=== PATIENT | male | born 1945 | race Caucasian/White ===

== ENCOUNTER 2016-07-22 12:24 | Day surgery (SDCO) | payer OTHER ==
[~2016-07-22] VITALS: Ht 188 cm; Wt 131.6 kg
[2016-07-22 13:20] LABS: BASOPHIL 0.5 % (0-2); EOSINOPHIL 2.1 % (0-7); HCT 47.1 % (42.0-52.0); HGB 16.1 g/dl (13.2-18.0); LYMPHOCYTE 11.8 % (15-48); MCH 29.9 pg (25.0-31.0); MCHC 34.2 g/dL (32.0-36.0); MCV 87.5 fL (78.0-100.0); MONOCYTE 9.1 % (0-12); NEUTROPHIL 76.5 % (41-80); PLT 231 K/uL (150-400); RBC 5.38 M/uL (4.70-6.00); RDW 14.9 % (11.5-14.0); WBC 9.1 K/uL (4.0-10.5)
[2016-07-22 13:38] LABS: INR 1.06 (0.9-1.2); PROTHROMBIN TIME 13.4 SECONDS (11.7-14.0); PTT 31.5 SECONDS (23.2-31.4)
[2016-07-22 13:50] LABS: BILIRUBIN - TOTAL 1.2 mg/dL (0.1-1.0); GLOBULIN (CALCULATION) 2.4 g/dL (2.2-4.2); MAGNESIUM 1.89 mg/dL (1.40-2.10); POTASSIUM 4.1 mmol/L (3.5-5.1); TOTAL PROTEIN 6.4 g/dL (6.4-8.3)
[2016-07-22 13:53] LABS: CKMB 2.24 ng/mL (0.97-4.94); MYOGLOBIN 40 ng/mL (26-65); TROPONIN T < 0.010 ng/mL
[2016-07-22 13:58] LABS: PRO-BNP 1743 pg/mL (0-125)
[2016-07-22 20:25] LABS: CKMB 1.93 ng/mL (0.97-4.94); TROPONIN T < 0.010 ng/mL
[2016-07-22 20:35] LABS: FT4 (FREE T4) 1.49 ng/dL (0.93-1.70); TSH (THYROID STIM HORMONE) 4.06 uIU/mL (0.270-4.200)
[2016-07-23 02:12] LABS: HGB 16.7 g/dl (13.2-18.0); MCH 29.8 pg (25.0-31.0); MCHC 34.1 g/dL (32.0-36.0); MCV 87.3 fL (78.0-100.0); MPV 9.9 fL (6.0-9.5); RBC 5.61 M/uL (4.70-6.00); RDW 15.1 % (11.5-14.0); WBC 9.3 K/uL (4.0-10.5)
[2016-07-23 02:29] LABS: ALBUMIN 4.1 g/dL (3.4-4.8); BILIRUBIN - TOTAL 1.4 mg/dL (0.1-1.0); CREATININE 1.1 mg/dL (0.7-1.2); GLOBULIN (CALCULATION) 2.5 g/dL (2.2-4.2); MAGNESIUM 1.86 mg/dL (1.40-2.10); POTASSIUM 3.5 mmol/L (3.5-5.1); TOTAL PROTEIN 6.6 g/dL (6.4-8.3)
[2016-07-23 02:31] LABS: CKMB 1.65 ng/mL (0.97-4.94); TROPONIN T < 0.010 ng/mL
[2016-07-24 04:43] LABS: HCT 50.6 % (42.0-52.0); HGB 17.1 g/dl (13.2-18.0); MCH 29.8 pg (25.0-31.0); MCHC 33.8 g/dL (32.0-36.0); MCV 88.2 fL (78.0-100.0); MPV 10.3 fL (6.0-9.5); RBC 5.74 M/uL (4.70-6.00); RDW 15.3 % (11.5-14.0); WBC 7.8 K/uL (4.0-10.5)
[2016-07-24 05:01] LABS: CREATININE 1.3 mg/dL (0.7-1.2); MAGNESIUM 2.03 mg/dL (1.40-2.10); POTASSIUM 3.5 mmol/L (3.5-5.1); PRO-BNP 648 pg/mL (0-125); TROPONIN T < 0.010 ng/mL
--- NOTE | 2016-07-24 11:33 | NUR ---
REPORT GIVEN TO KATI GILLESPIE AT [facility]
--- NOTE | 2016-07-24 13:05 | NUR ---
1215: EMS ARRIVED TO TRANSPORT PT TO [facility]. [facility]ITAL ST[facility]EL AT THIS TIME.
== END 2016-07-24 12:15 | disposition other institution (70) ==
LOC: FER 12:24 → FTCU 16:29
PROVIDERS: Emergency Medicine; Internal Medicine Cardiovascular Disease; ADMIT Internal Medicine
DX: R07.89 Other chest pain (principal); I48.91 Unspecified atrial fibrillation; I25.10 Atherosclerotic heart disease of native coronary artery without angina pectoris; I50.9 Heart failure, unspecified; E78.5 Hyperlipidemia, unspecified; J44.9 Chronic obstructive pulmonary disease, unspecified; L03.90 Cellulitis, unspecified; Z95.1 Presence of aortocoronary bypass graft; Z87.891 Personal history of nicotine dependence; Z85.820 Personal history of malignant melanoma of skin; Z83.3 Family history of diabetes mellitus; Z82.49 Family history of ischemic heart disease and other diseases of the circulatory system; Z79.82 Long term (current) use of aspirin; Z79.899 Other long term (current) drug therapy; Z98.890 Other specified postprocedural states
CPT/HCPCS: 36415; 71010; 80048; 80053; 80061; 82550; 82553; 83735; 83874; 83880; 84100; 84439; 84443; 84484; 85025; 85610; 85730; 93005; 93970; 94640; G0378; J1940

== ENCOUNTER 2021-07-18 10:41 | Emergency (ER) | payer OTHER ==
[~2021-07-18 10:41] MED LIST: ELIQUIS5 MG PO; KLOR-CON M2020 MEQ PO; LASIX40 MG PO; LIPITOR80 MG PO; NITROQUIK SL0.4 MG SL; TOPROL XL 25MG25 MG PO; TRELEGY ELLIPT1 EACH PO
[2021-07-18 12:05] LABS: EOSINOPHIL 2.2 % (0-7); HCT 52.8 % (42.0-52.0); HGB 17.3 g/dl (13.2-18.0); LYMPHOCYTE 9.8 % (15-48); MCHC 32.8 g/dL (32.0-36.0); MCV 91.5 fL (78.0-100.0); MPV 10.3 fL (6.0-9.5); NEUTROPHIL 77.4 % (41-80); NRBC 0; PLT 232 K/uL (150-400); RBC 5.77 M/uL (4.70-6.00); RDW 15.2 % (11.5-14.0); WBC 9.4 K/uL (4.0-10.5)
[2021-07-18 12:11] LABS: INR 1.37 (0.9-1.2); PROTHROMBIN TIME 16.2 SECONDS (11.8-13.4); PTT 37.6 SECONDS (24.4-34.7)
[2021-07-18 12:20] LABS: ALBUMIN 3.7 g/dL (3.4-5.0); BILIRUBIN - TOTAL 1.7 mg/dL (0.2-1.0); BUN/CREAT RATIO (CALC) 14.3 RATIO; CREATININE 1.19 mg/dL (0.67-1.17); GLOBULIN (CALCULATION) 3.2 g/dL; TOTAL PROTEIN 6.9 g/dL (6.4-8.2)
== END 2021-07-18 14:30 | disposition home or self-care (01) ==
LOC: FER 10:41
PROVIDERS: Emergency Medicine
DX: I11.0 Hypertensive heart disease with heart failure (principal); I50.9 Heart failure, unspecified; I25.10 Atherosclerotic heart disease of native coronary artery without angina pectoris; J44.9 Chronic obstructive pulmonary disease, unspecified; I48.91 Unspecified atrial fibrillation; E78.5 Hyperlipidemia, unspecified; Z20.822 Contact with and (suspected) exposure to COVID-19; Z95.0 Presence of cardiac pacemaker; Z95.1 Presence of aortocoronary bypass graft; Z79.01 Long term (current) use of anticoagulants; Z79.899 Other long term (current) drug therapy
CPT/HCPCS: 36415; 71045; 71250; 80053; 83880; 84484; 85025; 85610; 85730; 87040; 93005; 94640; J2930; U0002